=== PATIENT | male | born 1975 | race Caucasian/White ===

== ENCOUNTER → 2021-06-03 02:57 | Outpatient (CLI) | payer BC, SELFPAY ==
[2021-06-03 12:17] LABS: Influenza A QL RT-PCR Negative (Negative); Influenza B QL RT-PCR Negative (Negative); SARS-CoV-2 RNA PCR Negative
== END ==
PROVIDERS: PCP Internal Medicine; Visit Provider Internal Medicine
DX: J06.9 Acute upper respiratory infection, unspecified (principal); Z20.822 Contact with and (suspected) exposure to COVID-19
CPT/HCPCS: 87502; C9803; U0003; U0005

== ENCOUNTER 2021-06-03 13:09 | Emergency (ER) | payer BC, SELFPAY ==
--- NOTE | 2021-06-03 13:21 | ED.URI ---
HPI - URI/Sore Throat General Chief Complaint: Upper Respiratory Infection Stated Complaint: sore throat would like strep swab Time Seen by Provider: 06/03/21 13:23 Source: patient, RN notes reviewed and old records reviewed Mode of arrival: ambulatory Limitations: no limitations History of Present Illness HPI Narrative: 46 year old male who presents to [facility] care with complaints of sore throat, fever and fatigue for the past 3 days. He was unable to be seen by his doctor in the office so his physician ordered a COVID PCR and Flu Swab to be done thru the drive thru at hospital but was told he won't have results back till Sunday. Patient reports that he has no sinus drainage or sinus pressure but his throat is painful rates it a 6/10 with increase pain with swallowing. Patient states that he has been taking DayQuil, Ibuprofen and NyQuil for his symptoms without resolution of his symptoms. MD elicited complaint: fever and sore throat Pertinent past history: pneumonia, sinusitis and asthma (as child) Onset (ago): day(s) (3) Consistency: constant Severity: moderate Pain scale (0-10): 6 Exacerbating factors: swallowing Treatments prior to arrival: ibuprofen and cold medicine Related Data Home Medications Medication Instructions Recorded Confirmed fluticasone propionate [Flonase] 1 spray INTRANASAL DAILY 06/03/21 06/03/21 loratadine [Claritin] 1 mg PO DAILY 06/03/21 06/03/21 Allergies Allergy/AdvReac Type Severity Reaction Status Date / Time No Known Allergies Allergy Verified 06/03/21 13:24 Review of Systems Review of Systems: CONSTITUTIONAL: Positive for fever, chills, or sweats. EYES: Denies visual changes, redness, or discharge. ENT: Denies rhinorrhea, congestion, positive for sore throat, right otalgia. CARDIOVASCULAR: Denies chest pain, palpitations, or edema. RESPIRATORY: Denies cough or dyspnea. GASTROINTESTINAL: Denies abdominal pain, nausea, vomiting, or diarrhea. GENITOURINARY: Denies dysuria or hematuria. SKIN: Denies rash or itching. MUSCULOSKELETAL: Denies back pain, joint pain, or myalgia. NEUROLOGIC: Denies headache, numbness, or weakness. PSYCHIATRIC: Denies anxiety or depression. All systems reviewed & are unremarkable except as noted in HPI and below [facility] Past Medical History Medical History (Updated 06/03/21 @ 14:01 by Brooke Prakash NP) Mixed hyperlipidemia Sinus problem Surgical History Surgical History (Updated 06/03/21 @ 13:41 by Brooke Prakash NP) History of removal of skin mole Family History Family History Mother Family history of migraine headaches Cerebrovascular accident Family history of Alzheimer's disease Father Patient's father is in good health Grandparent Carcinoma of colon Family history of Alzheimer's disease Family history of lung cancer Family history of heart disease in male family member before age 55 Social History Social History Smoking packs per day: 1 Smoking cigarettes per day: 20.0 Years smoked: 12 Smoking pack-years: 12.00 Smoking status: Former smoker Tobacco type: cigarettes Second hand tobacco smoke exposure: No Smoking end date: 03/26/05 Alcohol intake: current Comments At time of signature, agree with nursing past medical, surgical, social and family history. There is no relevant family history pertinent to the presenting complaint Exam Narrative: GENERAL: Well-appearing, well-nourished, and in no acute distress. HEAD: Normocephalic, atraumatic. EYES: PERRLA and EOMI. ENT: Nares clear, no rhinorrhea or epistaxis. Mucous membranes moist. TM' normal with good light reflex, throat red with white lesions on tonsils and uvula red and swollen, tonsils enlarged and red NECK: Supple. lymphadenopathy CHEST: Clear to auscultation. No respiratory distress. SAO2 98% on room air HEART: Regular rate and rhythm. No
[2021-06-03 13:30] VITALS: BP 123/84; PULSE 121; RESP 16; TEMP 36.9; O2SAT 98
== END 2021-06-03 13:52 | disposition home or self-care (01) ==
PROVIDERS: Emergency Provider Registered Nurse; PCP Internal Medicine
DX: J02.0 Streptococcal pharyngitis (principal); Z20.822 Contact with and (suspected) exposure to COVID-19; Z87.891 Personal history of nicotine dependence; E78.2 Mixed hyperlipidemia
CPT/HCPCS: 87426; 87804; 87880; 99213; C9803; G0463

== ENCOUNTER 2021-10-21 01:57 | Day surgery (SDC) | payer BC, SELFPAY ==
[2021-10-05 13:17] VITALS: BMI 26.5
--- NOTE | 2021-10-21 07:41 | P.PNAN_ITS ---
Anes - Initial Pre Proc Eval Procedure: Operation Date: 10/21/21 09:00 Proposed Procedures p Screening Colonoscopy - Kaiser Cervantes MD Date/Time: 10/21/21 07:41 Surgeon: Kaiser Cervantes MD Pre Op Diagnosis: neoplasm screening Patient Data Age: 46 Gender: M Height: 1.78 m Weight: 84 kg Allergies Allergy/AdvReac Type Severity Reaction Status Date / Time No Known Allergies Allergy Verified 10/21/21 07:47 Home Medications Medication Instructions Recorded Confirmed Type fluticasone propionate 50 1 spray intranasal DAILY 06/03/21 10/21/21 History mcg/actuation nasal spray,suspension loratadine 10 mg tablet (Claritin) 10 mg PO DAILY 06/03/21 10/21/21 History rosuvastatin 20 mg tablet 20 mg PO DAILY #90 tabs 07/22/21 10/21/21 Rx finasteride 1 mg tablet (Propecia) 1 mg PO DAILY #90 tabs 07/25/21 10/21/21 Rx Patient hx anesthesia problems: none Family hx anesthesia problems: none Results Review: All pre-operative results and documents have been reviewed as part of the pre- operative evaluation. [facility] Past Medical History Medical History Elevated cholesterol Mixed hyperlipidemia Sinus problem Surgical History Surgical History History of removal of skin mole Family History Family History Mother Family history of migraine headaches Cerebrovascular accident Family history of Alzheimer's disease Father Patient's father is in good health Grandparent Carcinoma of colon Family history of Alzheimer's disease Family history of lung cancer Family history of heart disease in male family member before age 55 Social History Social History (Updated 07/29/21 @ 08:42 by Jose Dwyer MA) Smoking packs per day: 1 Smoking cigarettes per day: 20.0 Years smoked: 12 Smoking pack-years: 12.00 Smoking status: Former smoker Tobacco type: cigarettes Second hand tobacco smoke exposure: No Smoking end date: 03/26/05 Alcohol intake: current Drinks per week: 2 Substance use: former Substance use type: marijuana Last use: Living arrangements: alone Spiritual care concerns: No Anes - Eval Final PreProcedure Day of Procedure 10/21/21 07:41 Patient weight: overweight Heart: regular rate and rhythm Lungs: clear to auscultation and normal air movement Airway: Mallampati scale class II Neurological: alert and oriented Last oral intake: >/= 8 hours ASA classification: II Emergent: no Anesthetic plan: proceed Anesthesia type and monitoring: general GIVS Results Review: All pre-operative results and documents have been reviewed as part of the pre- operative evaluation. Informed Consent: The patient's anesthetic plan and its attendant risks and benefits were discussed with the patient/family/POA. Questions were solicited and answers provided to the satisfaction of the patient/family/POA.
[2021-10-21 07:48] VITALS: BP 107/73; PULSE 85; RESP 16; TEMP 36.5; O2SAT 99; BMI 26.9
[2021-10-21] MEDS: LACTATED RINGERS 1,000 ML 150 ML IV CONT (08:00)
--- NOTE | 2021-10-21 08:12 | PM.HPGS ---
History of Present Illness History of Present Illness Consent: Risks, benefits, and alternatives have been discussed and questions answered. Patient agrees to proceed with procedure. Chief complaint: neoplasm screening Narrative: Orlin Haque is a 46 year old male here for screening colonoscopy, had one about 10 years ago when had gi issues Review of Systems Constitutional: Constitutional: Denies headache(s) and Denies weakness Eyes: Eyes: Denies blurry vision ENT: Reports Normal hearing present, Denies headache(s) and Denies neck pain Cardiovascular: Cardiovascular: Denies chest pain and Denies dyspnea Respiratory: Respiratory: Denies dyspnea Gastrointestinal: Gastrointestinal: Reports no additional gastrointestinal complaints Genitourinary: Genitourinary: Denies dysuria Musculoskeletal: Musculoskeletal: Denies neck pain Integumentary/Breasts: Skin/Breast: Denies dry skin Neurologic: Reports Normal hearing present, Denies headache(s) and Denies weakness Psychiatric: Psychiatric: Denies anxiety Endocrine: Endocrine: Denies change in body appearance Hematologic/Lymphatic: Hematologic/Lymphatic: Denies easy bleeding Allergic/Immunologic: Allergic/Immunologic: Denies urticaria PMFSH Past Medical History Medical History Elevated cholesterol Mixed hyperlipidemia Sinus problem Surgical History Surgical History History of removal of skin mole Family History Family History Mother Family history of migraine headaches Cerebrovascular accident Family history of Alzheimer's disease Father Patient's father is in good health Grandparent Carcinoma of colon Family history of Alzheimer's disease Family history of lung cancer Family history of heart disease in male family member before age 55 Social History Social History (Updated 07/29/21 @ 08:42 by Jose Dwyer MA) Smoking packs per day: 1 Smoking cigarettes per day: 20.0 Years smoked: 12 Smoking pack-years: 12.00 Smoking status: Former smoker Tobacco type: cigarettes Second hand tobacco smoke exposure: No Smoking end date: 03/26/05 Alcohol intake: current Drinks per week: 2 Substance use: former Substance use type: marijuana Last use: Living arrangements: alone Spiritual care concerns: No Meds Home Medications and Allergies Home Medications Medication Instructions Recorded Confirmed Type fluticasone propionate 50 1 spray intranasal DAILY 06/03/21 10/21/21 History mcg/actuation nasal spray,suspension loratadine 10 mg tablet (Claritin) 10 mg PO DAILY 06/03/21 10/21/21 History rosuvastatin 20 mg tablet 20 mg PO DAILY #90 tabs 07/22/21 10/21/21 Rx finasteride 1 mg tablet (Propecia) 1 mg PO DAILY #90 tabs 07/25/21 10/21/21 Rx Allergies Allergy/AdvReac Type Severity Reaction Status Date / Time No Known Allergies Allergy Verified 10/21/21 07:47 Vital Signs Vital Signs - 24 hr 10/21/21 07:48 Temperature 97.7 F Pulse Rate 85 Respiratory Rate 16 Blood Pressure 107/73 Pulse Oximetry 99 Oxygen Delivery Room Air Exam Const: General: comfortable and no acute distress HENMT: General nose exam: Normal nares present Eyes: General: appearance normal, both eyes and all related structures Neck: Neck: no JVD Resp: Auscultation: clear to auscultation bilaterally Cardio: Rate: regular rate Rhythm: regular rhythm GI: Inspection: non-distended GI Palp: Yes Soft to palpation Skin: General skin exam: normal color Neuro: General: gait normal Speech: normal speech Extrem: General: normal to inspection Psych: Mental Status: mental status grossly normal Assessment and Plan Assessment and plan (1) Encounter for screening colonoscopy: Code(s): Z12.11 - Encounter for screening for
[2021-10-21 08:36] VITALS: BP 91/59; PULSE 74; RESP 20; O2SAT 99
[2021-10-21 08:46] VITALS: BP 96/64; PULSE 76; RESP 20; O2SAT 99
[2021-10-21 08:56] VITALS: BP 108/67; PULSE 68; RESP 20; O2SAT 100
== END 2021-10-21 08:59 | disposition home or self-care (01) ==
PROVIDERS: PCP Internal Medicine; Visit Provider Internal Medicine Gastroenterology
PROC: 0DJD8ZZ Inspection of Lower Intestinal Tract, Via Natural or Artificial Opening Endoscopic (ICD-10-PCS; CPT 45378; principal; 2021-10-21 09:00)
DX: Z12.11 Encounter for screening for malignant neoplasm of colon (principal); K64.8 Other hemorrhoids; E78.00 Pure hypercholesterolemia, unspecified; E78.2 Mixed hyperlipidemia; Z87.891 Personal history of nicotine dependence; F12.90 Cannabis use, unspecified, uncomplicated
CPT/HCPCS: 45378; J2704; J7120

== ENCOUNTER 2022-07-21 12:14 | Emergency (ER) | payer BC, SELFPAY ==
--- NOTE | ~2022-07-21 | US_ITS ---
EXAMINATION: US scrotum doppler DATE: 07/21/2022 13:04 INDICATION: Right testicular swelling TECHNIQUE: Testicular sonogram utilizing grayscale and Doppler COMPARISON: None. FINDINGS: The right testis measures 4.2 x 2.4 x 2.9 cm. The left testis measures 4.9 x 2.0 x 2.6 cm. Symmetric normal grayscale appearance to both testes. There is normal vascular flow to both testes. The right e pididymis is normal but with asymmetric increased vascular flow on color Doppler suspicious for epidi dymitis. The left epididymis is normal with normal vascular flow. There is no varicocele. Small right hydrocele. IMPRESSION: 1. Small right hydrocele and asymmetric increased vascular flow to the normal-appearing right epidid ymis which could be seen with epididymitis. 2. Normal bilateral testes. Reviewed, dictated and finalized at location A. IMPRESSION: 1. Small right hydrocele and asymmetric increased vascular flow to the normal- appearing right epididymis which could be seen with epididymitis. 2. Normal bilateral testes.
[2022-07-21 12:24] VITALS: BP 140/87; PULSE 96; RESP 20; TEMP 36.6; O2SAT 100
[2022-07-21 15:02] LABS: Appearance Urine Clear (Clear); Bilirubin Urine Negative (Negative); Blood Urine Negative (Negative); Color Urine Yellow (Yellow); Glucose Urine UA Negative (Negative); Ketones Urine Negative (Negative); Leukocyte Esterase Ur Negative LEU/UL (Negative); Nitrate Urine Negative (Negative); Protein Urine Negative (Negative); Specific Grav Ur 1.017 (1.001-1.035); Urobilinogen Urine 0.2 mg/dL (<2.0); pH Urine 6.5 (5.0-9.0)
[2022-07-21 15:10] LABS: Add Urine Microscopic? NO
--- NOTE | 2022-07-21 15:48 | ED.GENADULT ---
HPI - General Adult General Chief complaint: Urogenital-Male Stated complaint: R Tesicular swelling Time Seen by Provider: 07/21/22 14:39 History of Present Illness HPI narrative: 47-year-old male presented to the emergency department for evaluation of right testicular pain. Patient had a vasectomy back in March by Dr. Crawford. Patient states he has had some increased scrotal swelling since having the procedure. Patient states over the last few days he had increased right testicular pain. Patient states he has not been sexually active since January. Related Data Home Medications Medication Instructions Recorded Confirmed loratadine 10 mg tablet (Claritin) 10 mg PO DAILY 06/03/21 12/23/21 Allergies Allergy/AdvReac Type Severity Reaction Status Date / Time No Known Allergies Allergy Verified 07/21/22 14:37 Review of Systems Review of Systems: All systems reviewed & are unremarkable except as noted in HPI and below PMFSH Past Medical History Medical History Elevated cholesterol Mixed hyperlipidemia Sinus problem Surgical History Surgical History History of removal of skin mole Family History Family History Mother Family history of migraine headaches Cerebrovascular accident Family history of Alzheimer's disease Father Patient's father is in good health Grandparent Carcinoma of colon Family history of Alzheimer's disease Family history of lung cancer Family history of heart disease in male family member before age 55 Social History Social History Smoking packs per day: 1 Smoking cigarettes per day: 20.0 Years smoked: 12 Smoking pack-years: 12.00 Smoking status: Former smoker Tobacco type: cigarettes Second hand tobacco smoke exposure: No Smoking end date: 03/26/05 Alcohol intake: current Drinks per week: 2 Substance use: former Substance use type: marijuana Last use: Living arrangements: alone Spiritual care concerns: No Exam Narrative: APPEARANCE: Well appearing, no pain, no distress, well-nourished. HEAD: normocephalic, atraumatic. EYES: PERRLA/EOMI, conjunctivae clear. NECK: Supple. No adenopathy, no masses. RESPIRATORY: Airway patent, respirations nonlabored. Clear to auscultation bilaterally, no rales, rhonchi, wheezing. CARDIOVASCULAR: Regular rate and rhythm without murmurs rubs or gallops. ABDOMINAL: Soft, nontender, nondistended, normal bowel sounds Genitourinary: Right testicular swelling. No scrotal erythema or edema. MUSCULOSKELETAL: Moves all extremities. Strength/ROM intact, No edema, No calf tenderness. NEURO: Alert. Cranial nerves II through XII intact. Good gait. Good coordination SKIN: Warm, dry. Normal Color Course Course Emergency Course: Ultrasound was negative for torsion but did show evidence of epididymitis. Patient was started on IM Rocephin and patient was also started on doxycycline. Patient was updated on the results of the ultrasound and on the treatment plan. Patient was encouraged of close follow-up with urology. All question concerns were addressed. Vital Signs Vital signs: Vital Signs Temperature 97.9 F 07/21/22 12:24 Pulse Rate 96 07/21/22 12:24 Respiratory Rate 20 07/21/22 12:24 Blood Pressure 140/87 07/21/22 12:24 Pulse Oximetry 100 07/21/22 12:24 Oxygen Delivery Room Air 07/21/22 12:24 Temperature 97.9 F 07/21/22 12:24 Pulse Rate 96 07/21/22 12:24 Respiratory Rate 20 07/21/22 12:24 Blood Pressure 140/87 07/21/22 12:24 Pulse Oximetry 100 07/21/22 12:24 Oxygen Delivery Room Air 07/21/22 12:24 Medical Decision Making Vital Signs Vital Signs: Vital Signs Temperature 97.9 F 07/21/22 12:24 Pulse Rate 96 07/21/22 12:2
[2022-07-21] MEDS: cefTRIAXone 1 GM VIAL 0.5 GM IM (16:14)
[2022-07-21] MEDS: DOXYCYCLINE HYCLATE 100 MG TABLET PO (16:14)
[2022-07-21] MEDS: LIDOCAINE HCL 1% LOCAL INJ 10 ML VIAL (16:19)
== END 2022-07-21 16:25 | disposition home or self-care (01) ==
PROVIDERS: Emergency Medicine; Emergency Provider Emergency Medicine; PCP Internal Medicine
DX: N45.1 Epididymitis (principal); E78.2 Mixed hyperlipidemia; Z87.891 Personal history of nicotine dependence
CPT/HCPCS: 76870; 81003; 87661; 93976; 96372; 99284; A9270; J0696

== ENCOUNTER 2024-02-08 09:13 | Outpatient (CLI) | payer BC, SELFPAY ==
--- NOTE | ~2024-02-08 | US_ITS ---
EXAMINATION: US scrotum doppler DATE: 02/08/2024 09:45 INDICATION: Left testicular pain. TECHNIQUE: Grayscale and Doppler ultrasound images of the testes were obtained. COMPARISON: Ultrasound 07/21/22 FINDINGS: The right testis measures 4.5 x 2.2 x 3.1 cm. The left testis measures 5.0 x 1.9 x 3.1 cm. There is normal vascular flow to both testes. The right epididymis is normal with normal vascular milton w. The left epididymis is normal with normal vascular flow. There is no varicocele or hydrocele. IMPRESSION: 1. Normal testes. Reviewed, dictated and finalized at location A. D WRITER IMPRESSION: 1. Normal testes.
== END 2024-02-08 09:14 | disposition home or self-care (01) ==
PROVIDERS: PCP Nurse Practitioner; Visit Provider Nurse Practitioner
DX: N50.812 Left testicular pain (principal)
CPT/HCPCS: 76870; 93976

== ENCOUNTER 2025-01-16 10:50 | Outpatient (CLI) | payer BC, SELFPAY ==
--- NOTE | ~2025-01-16 | XR_ITS ---
XR lumbar spine 2-3V Indication: M54.50 - Low back pain, unspecified Comparison: None Findings: The vertebral heights are intact. No fracture or subluxation. The disc heights are intact. Soft tissues unremarkable Impression: No acute abnormality. Reviewed, dictated and finalized at location P. Impression: No acute abnormality.
--- OUTSIDE RECORDS SUMMARY | 2025-01-16 11:15 | XMS_ITS | Clinical Summary ---
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 Name Role Phone Jacobo Duarte NP Primary Care Provider Allergies No known active allergies Medications fluconazole (DIFLUCAN) 100 mg tablet TAKE 2 TABLETS BY MOUTH FOR 1 DAY THEN TAKE 1 TABLET BY MOUTH DAILY THEREAFTER Active rosuvastatin (CRESTOR) 40 mg tablet Take 1 tablet (40 mg total) by mouth daily 5 Active escitalopram (Lexapro) 5 mg tablet Take 1 tablet (5 mg total) by mouth daily 5 Active Active Problems Problem Noted Date Diagnosed Date Pain in both testicles 11/18/2024 Encounters Date Type Department Care Team Description 01/12/2025 1:40 PM CDT Office Visit [facility] [address] [facility] [address] [place] [phone] Waylon Duarte MD Chronic pelvic pain in male (Primary Dx) 01/12/2025 10:30 AM CDT Therapy [facility] OP Physical Therapy [address] [place] [phone] Darshana Zee, PT Urological disorder (Primary Dx); Chronic pelvic pain in male 01/06/2025 10:45 AM CDT Therapy [facility] OP Physical Therapy [address] [place] [phone] Darshana Zee, PT Urological disorder (Primary Dx); Chronic pelvic pain in male 12/30/2024 10:45 AM CDT Therapy [facility] OP Physical Therapy [address] [place] [phone] Darshana Zee, PT Urological disorder (Primary Dx); Chronic pelvic pain in male 12/23/2024 10:45 AM CDT Therapy [facility] OP Physical Therapy [address] [place] [phone] Darshana Zee, PT Urological disorder (Primary Dx); Chronic pelvic pain in male 12/10/2024 2:30 PM CDT Therapy [facility] OP Physical Therapy [address] [place] [phone] Darshana Zee, PT Urological disorder (Primary Dx); Chronic pelvic pain in male 11/27/2024 9:00 AM CDT Therapy [facility] Physical Therapy [address] [place] [phone] Darshana Zee, PT Urological disorder (Primary Dx); Chronic pelvic pain in male 11/18/2024 1:45 PM CDT Therapy [facility] OP Physical Therapy [address] [place] [phone] Darshana Zee, PT Urological disorder (Primary Dx); Chronic pelvic pain in male 11/14/2024 11:40 AM CDT Office Visit [facility] [address] [place] [address] Medical Office Building [address] [place] [phone] Waylon Duarte MD Pain in both testicles (Primary Dx) 11/07/2024 1:07 PM CDT - 11/07/2024 11:59 PM CDT Hospital Encounter [facility] [address] [place] [phone] Swelling of scrotum Discharge Disposition: Discharge to home or self care 10/31/2024 Telephone [facility] [address] [place] [address] Medical Office Building [address] [place] [phone] Waylon Duarte MD 10/23/2024 12:45 PM CDT Therapy [facility] OP Physical Therapy [address] [place] [phone] Darshana Zee, NUZHAT Urological disorder; Chronic pelvic pain in male 10/23/2024 Plan of Care Documentation [facility] Physical Therapy [address] [place] [phone] 10/22/2024 3:20 PM CDT Office Visit [facility] [address] [facility] [address] [place] [id number] Waylon Duarte MD Pain in both testicles (Primary Dx) from Last 3 Months Social History Tobacco Use Types Packs/Day Years Used Date Smoking Tobacco: Never Assessed Sex and Gender Information Value Date Recorded Sex Assigned at Not on file 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 Gender Identity Not on file Sexual Orientation Not on file Obstetrics History Last Filed Vital Signs Vital Sign Reading Time Taken Comments Blood Pressure 124/76 08/07/2024 10:55 AM CDT Pulse 116 08/07/2024 10:55 AM CDT Temperature 37.1 C (98.8 F) 08/07/2024 10:55 AM CDT Respiratory Rate 20 08/07/2024 10:55 AM CDT Oxygen Saturation 98% 08/07/2024 10:55 AM CDT Inhaled Oxygen Concentration - - Weight 74.8 kg (165 lb) 10/06/2024 8:55 AM CDT Height 177.8 cm (5' 10) 10/06/2024 8:55 AM CDT Body Mass Index 23.68 10/06/2024 8:55 AM CDT Plan of Treatment Health Maintenance Due Date Last Done Comments Colon Cancer Screening-Colonoscopy 1976 Depression Screening 1976 Hepatitis C Screening 1976 Hepatitis B Screening 02/21/1994 Regular Well Visit/Exam 18-64 02/21/1994 Covid-19 Vaccine ( season) 2024 01/13/2022, 02/27/2021, 08/03/2020, Additional history exists Influenza Vaccine (#1) 2024 2, 02/27/2021, 12/22/2019 DTaP/Tdap/Td Vaccine (2 - Td or Tdap) 01/28/2025 01/28/2015 Pneumococcal vaccine <65 Aged Out 03/26/2003, 03/1998 No longer eligible based on patient's age to complete this topic Procedures Procedure Name Priority Date/Time Associated Diagnosis Comments US SCROTUM Schedule Routine, Read Routine (OP Routine) 11/07/2024 1:39 PM CDT Swelling of scrotum from Last 3 Months Results * US Scrotum (11/07/2024 1:39 PM CDT) Anatomical Region Laterality Modality Testis N/A Ultrasound 11/07/2024 2:20 PM CDT Impressions 11/07/2024 3:24 PM CDT 1. Post vasectomy changes. 2. Normal testes. No varicocele. Dictated by: Randy Messer MD The radiology attending physician has personally reviewed this study, and had reviewed and/or edited this written report and agrees with it. Electronically signed by: Tu Sosa M.D. Narrative 11/07/2024 3:24 PM CDT EXAMINATION: SCROTAL SONOGRAM HISTORY: Vasectomy in 2022, now with scrotal pain. Being evaluated for vasectomy reversal. COMPARISON: None FINDINGS: The testes are normal in size and appearance. The right testis measures 4.5 cm by 2.7 cm by 1.8 cm and the left measures 4.5 cm by 2.7 cm by 1.9 cm. No focal lesions are seen. The right and left epidiymis are normal. No abnormal scrotal masses or fluid collections are seen. No evidence of varicocele with Valsalva. Tubular ectasia of the epididymis bilaterally compatible with post vasectomy state. Procedure Note Tu Sosa MD - 11/07/2024 EXAMINATION: SCROTAL SONOGRAM HISTORY: Vasectomy in 2022, now with scrotal pain. Being evaluated for vasectomy reversal. COMPARISON: None FINDINGS: The testes are normal in size and appearance. The right testis measures 4.5 cm by 2.7 cm by 1.8 cm and the left measures 4.5 cm by 2.7 cm by 1.9 cm. No focal lesions are seen. The right and left epidiymis are normal. No abnormal scrotal masses or fluid collections are seen. No evidence of varicocele with Valsalva. Tubular ectasia of the epididymis bilaterally compatible with post vasectomy state. IMPRESSION: 1. Post vasectomy changes. 2. Normal testes. No varicocele. Dictated by: Randy Messer MD The radiology attending physician has personally reviewed this study, and had reviewed and/or edited this written report and agrees with it. Electronically signed by: Tu Sosa M.D. 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
== END 2025-01-16 10:51 | disposition home or self-care (01) ==
PROVIDERS: PCP Nurse Practitioner; Visit Provider Nurse Practitioner
DX: M54.50 Low back pain, unspecified (principal); G89.29 Other chronic pain
CPT/HCPCS: 72100